=== PATIENT | female | born 1955 | race Caucasian/White ===

== ENCOUNTER 2022-06-14 19:54 | Inpatient (IN) | payer OTHER ==
[~2022-06-14] VITALS: Ht 162.6 cm; Wt 59.0 kg
[2022-06-14 20:14] VITALS: BP 151/88
--- NOTE | 2022-06-14 20:15 | NUR ---
PT OFFLOADED TO [facility]
[2022-06-15] MEDS ORDERED: NACL 0.9% 1,000 ML IV ONE (00:30)
[2022-06-15] MEDS ORDERED: ONDANSETRON 4 MG/2 ML VIAL IVP ONE (00:30)
--- NOTE | 2022-06-15 00:33 | NUR ---
PT TAKEN TO BED 2
--- NOTE | 2022-06-15 00:45 | NUR ---
Pt BIBA from home c/o N/V/tremors that started yesterday. Pt denies any other s/s. H/O ETOH abuse Hx- HTN, depression Allergies to sulfa
[2022-06-15 00:48] LABS: APPEARANCE,URINE CLOUDY (CLEAR); BILIRUBIN,URINE 2+ (NEGATIVE); BLOOD, URINE 2+ (NEGATIVE); COLOR,URINE BROWN (YELLOW); LEUKOCYTE ESTERASE ,URINE TRACE (NEGATIVE); NITRITE, URINE POSITIVE (NEGATIVE); PH,URINE 5.5 (5.0-9.0); UGLUCOSE NEGATIVE (NEGATIVE)
[2022-06-15] MEDS ORDERED: NEBI5TAB4 PO (00:48)
[2022-06-15] MEDS ORDERED: BENA40TA PO (00:48)
[2022-06-15 00:50] LABS: BASOPHILS % (AUTO) 0.3 % (0.0-2.0); LYMPHOCYTES # (AUTO) 2.4 K/uL (2.5-16.5); LYMPHOCYTES % (AUTO) 25.1 % (20.5-51.1); MEAN CORPUSCULAR HEMOGLOBIN 35 pg (27-31); MEAN CORPUSCULAR HGB CONC 34 g/dL (33-37); MEAN CORPUSCULAR VOLUME 101.9 fL (80-94); MONOCYTES # (AUTO) 1.1 K/uL (0.8-1.0); MONOCYTES % (AUTO) 10.9 % (1.7-9.3); NEUTROPHILS # (AUTO) 6.2 K/uL (1.8-7.7); NEUTROPHILS % (AUTO) 63.7 % (42.2-75.2); PLATELET COUNT (AUTO) 330 K/uL (140-450); RED BLOOD CELL COUNT(AUTO) 4.03 MIL/uL (4.20-5.40); RED CELL DISTRIBUTION WIDTH 14.7 % (11.6-13.7); WHITE BLOOD COUNT (AUTO) 9.7 K/uL (4.8-10.8)
[2022-06-15] MEDS ORDERED: TRAZ-343 PO (00:50)
[2022-06-15] MEDS ORDERED: VENL150C4 PO (00:51)
[2022-06-15] MEDS ORDERED: SODI100076 PO (00:52)
[2022-06-15] MEDS ORDERED: ONDA-188 SL (00:52)
[2022-06-15] MEDS ORDERED: LAM200 PO (00:53)
--- NOTE | 2022-06-15 00:57 | NUR ---
PT RETURN FROM RADIOLOGY
[2022-06-15 01:02] LABS: ALBUMIN 3.9 g/dL (3.4-5.0); CARBON DIOXIDE 29.6 mmol/L (21-32); POTASSIUM 3.6 mmol/L (3.5-5.1); TOTAL BILIRUBIN 1.3 mg/dL (0.0-1.0)
[2022-06-15] MEDS ORDERED: LORazepam 2 MG/ML VIAL IVP ONE (01:20)
[2022-06-15] MEDS ORDERED: cefTRIAXone 1,000 MG VIAL ONE (01:23)
--- NOTE | 2022-06-15 02:00 | NUR ---
resting in bed with eyes closed, respirations regular and unlabored
--- NOTE | 2022-06-15 06:29 | NUR ---
tucker swab obtained and sent to lab
[2022-06-15] MEDS ORDERED: DOCUSATE SODIUM 100 MG GELCAP PO PRN (07:55)
[2022-06-15] MEDS ORDERED: MAG SULF 2000 MG/WATER PREMIX 50 ML IV PRN (07:55)
[2022-06-15] MEDS ORDERED: LORazepam 2 MG/ML VIAL IVP PRN (07:55)
[2022-06-15] MEDS ORDERED: POTASSIUM CHLORIDE 10 MEQ TABER PO PRN (07:55)
[2022-06-15] MEDS ORDERED: MORPHINE SULFATE 2 MG/ML SYR IVP PRN (07:55)
[2022-06-15] MEDS ORDERED: ONDANSETRON 4 MG/2 ML VIAL IVP PRN (07:55)
[2022-06-15] MEDS ORDERED: ACETAMINOPHEN 325 MG TAB PO PRN (07:55)
[2022-06-15] MEDS ORDERED: lamoTRIgine 25 MG TAB PO SCH (09:00)
--- NOTE | 2022-06-15 09:51 | NUR ---
PLACED TEXT TO Toro ESPARZA FOR ORDER CLARIFICATION ON LAMICTAL. TWO ORDERS FOR SAME MED.
--- NOTE | 2022-06-15 10:05 | NUR ---
PER TORB ORDER DR LORENZA ORNELAS 50 MG LAMICTAL , GIVEN ONLY 100MG PO. PHARMACIST MARY MADE AWARE
--- NOTE | 2022-06-15 11:14 | NUR ---
ROOM ASSIGNMENT 105A TRACY BUCKLEY ON UNIT REQUESTS REPORT AT BS.
--- NOTE | 2022-06-15 11:53 | NUR ---
CALLED TRACY BUCKLEY ON UNIT. STATES "BED NOT CLEAN YET, [facility] HAS BEEN CALLED". UPDATE GIVEN TO CHARGE. UNABLE TO MOVE PT AT THIS TIME.
[2022-06-15 13:45] VITALS: BP 168/92
--- NOTE | 2022-06-15 13:50 | NUR ---
RECEIVED PT FROM ER. REPORT RECEIVED FROM DONNA BUCKLEY FOR CONTINUITY OF CARE. PLACED IN BED COMFORTABLY. INITIAL ASSESSMENT DONE. ALERT AND ORIENTED X 4. RESP. EVEN AND UNLABORED. SKIN INTACT. CONTINENT TO BOWEL AND BLADDER. IVF INTACT TO LAC 20G. NO C/O PAIN OR DISCOMFORT. CALL LIGHT KEPT WITHIN REACH. WILL CONTINUE TO MONITOR.
[2022-06-15 16:00] VITALS: BP 180/102
--- NOTE | 2022-06-15 16:00 | NUR ---
MRSA SWAB COLLECTED. SEND TO LAB.
[2022-06-15] MEDS: hydrALAZINE 20 MG/ML VIAL IVP PRN (18:39)
--- NOTE | 2022-06-15 18:39 | NUR ---
BP 180/102. PRN HYDRALAZINE IVP WAS GIVEN BY ALBERTINA BUCKLEY. TOLERATING WELL.
--- NOTE | 2022-06-15 19:30 | NUR ---
REPORT GIVEN TO REFINERY OPERATOR ASSISTANT RAMY FOR CONTINUITY OF CARE. REMAINS STABLE.
--- NOTE | 2022-06-15 19:31 | NUR ---
RECEIVED REPORT FROM DAY SHIFT RN FOR CONTINUITY OF CARE. PT IS AWAKE AND ALERT. PT NOT IN ANY DISTRESS. PT IS AMBULATORY WITH CANE. PT HAS LEFT AC 20 GAUGE SALINE LOCK. WILL CONTINUE TO MONITOR THE PT.
[2022-06-15 20:00] VITALS: BP 140/71
[2022-06-15] MEDS: ZOLPIDEM 10 MG TAB PO PRN (21:16)
[2022-06-16] VITALS: BP 145/93
[2022-06-16] MEDS ORDERED: cefTRIAXone 1,000 MG VIAL ONE (01:37)
--- NOTE | 2022-06-16 01:50 | NUR ---
SCHEDULE MEDICATION GIVEN. NO ADVERSE REACTION NOTED. WILL CONTINUE TO MONITOR.
[2022-06-16] MEDS: BENAZEPRIL 20 MG TAB PO SCH (05:16)
--- NOTE | 2022-06-16 07:15 | NUR ---
ENDORSED PT TO DAY SHIFT RN FOR CONTINUITY OF CARE. PT IS STABLE.
--- NOTE | 2022-06-16 07:16 | NUR ---
RECEIVED BEDSIDE REPORT FROM NIGHTSHIFT NURSE. PT IS ASLEEP IN BED, WOKE TO NAME AND TOUCH. PT AOX4, ON RM AIR, NO SIGNS OF DISTRESS, NO REPORTS OF PAIN. IV TO LEFT AC 20G CLEAN AND INTACT, SALINE LOCK. NO FURTHER NEEDS ARE TO BE MET AT THIS TIME, WILL CONTINUE WITH CARE. BED IN LOWEST POSITION, 2 SIDE RAILS UP, CALL LIGHT PLACED WITHIN REACH. REORIENTED PT TO CALL LIGHT.
[2022-06-16 07:18] LABS: BASOPHILS % (AUTO) 0.3 % (0.0-2.0); EOSINOPHILS % (AUTO) 0.6 % (0.0-4.0); HEMATOCRIT 37.3 % (36-48); HEMOGLOBIN 12.7 g/dL (12.0-16.0); LYMPHOCYTES # (AUTO) 2.1 K/uL (2.5-16.5); LYMPHOCYTES % (AUTO) 37.1 % (20.5-51.1); MEAN CORPUSCULAR HEMOGLOBIN 35 pg (27-31); MEAN CORPUSCULAR HGB CONC 34 g/dL (33-37); MEAN CORPUSCULAR VOLUME 102.6 fL (80-94); MONOCYTES # (AUTO) 0.7 K/uL (0.8-1.0); MONOCYTES % (AUTO) 12.9 % (1.7-9.3); NEUTROPHILS # (AUTO) 2.8 K/uL (1.8-7.7); NEUTROPHILS % (AUTO) 49.1 % (42.2-75.2); PLATELET COUNT (AUTO) 257 K/uL (140-450); RED BLOOD CELL COUNT(AUTO) 3.64 MIL/uL (4.20-5.40); RED CELL DISTRIBUTION WIDTH 14.7 % (11.6-13.7); WHITE BLOOD COUNT (AUTO) 5.8 K/uL (4.8-10.8)
[2022-06-16 07:54] LABS: ANION GAP 11.1 (8-16); CREATININE 0.7 mg/dL (0.6-1.3); POTASSIUM 3.1 mmol/L (3.5-5.1)
[2022-06-16 08:00] VITALS: BP 146/85
--- NOTE | 2022-06-16 08:45 | NUR ---
PT POTASSIUM LOW (3.1), COVERED WITH KDUR.
[2022-06-16 16:00] VITALS: BP 153/97
--- NOTE | 2022-06-16 19:10 | NUR ---
ENDORSED PT TO NIGHTSHIFT NURSE. PT IS AWAKE, STABLE. NO FURTHER NEEDS ARE TO BE MET AT THIS TIME. BED IN LOWEST POSITION, 2 SIDE RAILS UP, CALL LIGHT PLACED WITHIN REACH.
--- NOTE | 2022-06-16 19:15 | NUR ---
RECEIVED REPORT FROM DAY SHIFT RN FOR CONTINUITY OF CARE. PT IS AAOX4 ON RA. NOT IN ANY DISTRESS. PT HAS LEFT AC 20 GAUGE. SALINE LOCK. POC DISCUSSED. WILL CONTINUE TO MONITOR THE PT.
[2022-06-16] MEDS: ZOLPIDEM 10 MG TAB PO PRN (20:18)
[2022-06-17] VITALS: BP 137/96
--- NOTE | 2022-06-17 00:40 | NUR ---
SCHEDULE MEDICATION GIVEN. NO ADVERSE REACTION NOTED. WILL CONTINUE TO MONITOR THE PT.
--- NOTE | 2022-06-17 00:40 | NUR ---
SCHEDULE MEDICATION GIVEN. NO ADVERSE REACTION NOTED. WILL CONTINUE TO MONITOR THE PT.
--- NOTE | 2022-06-17 05:20 | NUR ---
CHECKED ON PT. PT IS SLEEPING IN BED. NOT IN ANY ACUTE DISTRESS. VISIBLE CHEST RISE AND FALL. SAFETY MEASURES TAKEN. WILL CONTINUE TO MONITOR THE PT.
[2022-06-17] MEDS: BENAZEPRIL 20 MG TAB PO SCH (05:33)
--- NOTE | 2022-06-17 07:02 | NUR ---
ENDORSED PT TO DAY SHIFT RN FOR CONTINUITY OF CARE. PT IS STABLE.
--- NOTE | 2022-06-17 07:03 | NUR ---
RECEIVED REPORT FROM EQUIP MAINT ENG NURSE. PT IS AWAKE IN BED, NO SIGNS OF DISTRESS, NO REPORTS OF PAIN. WILL CONTINUE WITH PT CARE.
[2022-06-17 07:39] LABS: BASOPHILS % (AUTO) 0.4 % (0.0-2.0); EOSINOPHILS # (AUTO) 0.3 K/uL (0-0.4); EOSINOPHILS % (AUTO) 4.4 % (0.0-4.0); HEMATOCRIT 37.8 % (36-48); HEMOGLOBIN 12.8 g/dL (12.0-16.0); LYMPHOCYTES # (AUTO) 2.2 K/uL (2.5-16.5); LYMPHOCYTES % (AUTO) 31.8 % (20.5-51.1); MEAN CORPUSCULAR HEMOGLOBIN 35 pg (27-31); MEAN CORPUSCULAR HGB CONC 34 g/dL (33-37); MEAN CORPUSCULAR VOLUME 103.2 fL (80-94); MONOCYTES # (AUTO) 0.7 K/uL (0.8-1.0); MONOCYTES % (AUTO) 10.8 % (1.7-9.3); NEUTROPHILS # (AUTO) 3.6 K/uL (1.8-7.7); NEUTROPHILS % (AUTO) 52.6 % (42.2-75.2); PLATELET COUNT (AUTO) 261 K/uL (140-450); RED BLOOD CELL COUNT(AUTO) 3.66 MIL/uL (4.20-5.40); RED CELL DISTRIBUTION WIDTH 14.5 % (11.6-13.7); WHITE BLOOD COUNT (AUTO) 6.8 K/uL (4.8-10.8)
[2022-06-17 07:46] LABS: ANION GAP 10.6 (8-16); CARBON DIOXIDE 28.9 mmol/L (21-32); CREATININE 0.7 mg/dL (0.6-1.3); POTASSIUM 3.5 mmol/L (3.5-5.1)
[2022-06-17 08:00] VITALS: BP 147/81
[2022-06-17] MEDS: hydrALAZINE 20 MG/ML VIAL IVP PRN ×2 (08:02→18:55)
--- NOTE | 2022-06-17 09:01 | NUR ---
PATIENT HAS BEEN SCREENED AND CATEGORIZED MODERATE NUTRITION RISK. PATIENT WILL BE SEEN WITHIN 3-5 DAYS OF ADMISSION. 06/15/22-06/20/[address]
--- NOTE | 2022-06-17 11:38 | NUR ---
DR BARRIGA WITH PT AT BEDSIDE. VERBAL ORDER: MIRALAX 17MG & ABDOMINAL US
[2022-06-17] MEDS: POLYETHYLENE GLYCOL 17 GM/PKT PO SCH (14:00)
[2022-06-17 16:00] VITALS: BP 153/72
--- NOTE | 2022-06-17 19:00 | NUR ---
ENDORSED PT TO NIGHTSHIFT NURSE FOR CONTINUITY OF CARE. PT STABLE, NO SIGNS OF DISTRESS, NO REPORTS OF PAIN. BED IN LOWEST POSITION, SIDE RAILS UP, CALL LIGHT WITHIN REACH.
[2022-06-17] MEDS: ZOLPIDEM 10 MG TAB PO PRN (22:25)
--- NOTE | 2022-06-17 22:25 | NUR ---
PT COMPLAINTS OF UNABLE TO SLEEP, SLEEPING MEDICATION AMBIEN ADMINISTERED ORDERED.
[2022-06-18] MEDS: BENAZEPRIL 20 MG TAB PO SCH (05:44)
--- NOTE | 2022-06-18 06:20 | NUR ---
Received pt from Nurse Billy for continuity of care. Pt is stable, asleep in bed. no s/sx of distress at this moment. on room air.breathing even and unlabored. All precautions in place. Call light within reach. Will continue to monitor.
[2022-06-18 07:10] LABS: BASOPHILS % (AUTO) 0.2 % (0.0-2.0); EOSINOPHILS # (AUTO) 0.4 K/uL (0-0.4); EOSINOPHILS % (AUTO) 4.7 % (0.0-4.0); HEMATOCRIT 37.1 % (36-48); HEMOGLOBIN 12.8 g/dL (12.0-16.0); LYMPHOCYTES # (AUTO) 2.2 K/uL (2.5-16.5); LYMPHOCYTES % (AUTO) 28.6 % (20.5-51.1); MEAN CORPUSCULAR HEMOGLOBIN 36 pg (27-31); MEAN CORPUSCULAR HGB CONC 35 g/dL (33-37); MEAN CORPUSCULAR VOLUME 103.5 fL (80-94); MONOCYTES # (AUTO) 0.9 K/uL (0.8-1.0); MONOCYTES % (AUTO) 11.5 % (1.7-9.3); NEUTROPHILS # (AUTO) 4.3 K/uL (1.8-7.7); PLATELET COUNT (AUTO) 269 K/uL (140-450); RED BLOOD CELL COUNT(AUTO) 3.58 MIL/uL (4.20-5.40); RED CELL DISTRIBUTION WIDTH 14.8 % (11.6-13.7); WHITE BLOOD COUNT (AUTO) 7.8 K/uL (4.8-10.8)
--- NOTE | 2022-06-18 07:19 | NUR ---
ENDORSED TO DAY SHIFT NURSE FOR CONTINUITY OF CARE. PT IS STABLE.
--- NOTE | 2022-06-18 07:20 | NUR ---
RECEIVED BEDSIDE REPORT FROM NIGHTSHIFT NURSE. PT IS AWAKE IN BED, VITAL SIGNS STABLE, NO SIGNS OF DISTRESS, NO REPORTS OF PAIN. REORIENTED PT TO CALL LIGHT. NO FURTHER NEEDS ARE TO BE MET AT THIS TIME, WILL CONTINUE WITH CARE.
[2022-06-18 07:54] LABS: ANION GAP 12.7 (8-16); CARBON DIOXIDE 27.6 mmol/L (21-32); CREATININE 0.7 mg/dL (0.6-1.3); POTASSIUM 3.3 mmol/L (3.5-5.1)
[2022-06-18 08:00] VITALS: BP 122/85
[2022-06-18] MEDS: POLYETHYLENE GLYCOL 17 GM/PKT PO SCH (10:08)
[2022-06-18 13:11] VITALS: BP 122/85
--- NOTE | 2022-06-18 18:00 | NUR ---
DISCHARGE ORDERED BY . PT INFORMED OF DISCHARGE. DC INSTRUCTIONS PROVIDED, PT VERBALIZE UNDERSTANDING. PAPERWORK FILLED OUT. IV REMOVED. PT VITALS STABLE. TRANSPORTATION CALLED. PT LEFT [facility] UNIT VIA WHEELCHAIR, AMBULATED AND WALKED INDEPENDENTLY TO TRANSPORT VEHICLE. PT LEFT @1730.
== END 2022-06-18 17:15 | disposition home or self-care (01) | DRG 644 ==
LOC: MED 19:54 → MTU 06-15 06:40
PROVIDERS: ADMIT Family Medicine; ATTEND Family Medicine
DX: E22.2 Syndrome of inappropriate secretion of antidiuretic hormone (principal); N39.0 Urinary tract infection, site not specified; R65.10 Systemic inflammatory response syndrome (SIRS) of non-infectious origin without acute organ dysfunction; F32.A Depression, unspecified; E87.8 Other disorders of electrolyte and fluid balance, not elsewhere classified; R74.01 Elevation of levels of liver transaminase levels; Z20.822 Contact with and (suspected) exposure to COVID-19; D25.9 Leiomyoma of uterus, unspecified; I12.9 Hypertensive chronic kidney disease with stage 1 through stage 4 chronic kidney disease, or unspecified chronic kidney disease; N18.9 Chronic kidney disease, unspecified; Z88.2 Allergy status to sulfonamides; Z79.899 Other long term (current) drug therapy
CPT/HCPCS: 36415; 76700; 80048; 80053; 81001; 83605; 83690; 83735; 85025; 87040; 87081; 87086; 96365; 96375; 97116; 97163-GP; 99285; J0360; J0696; J2060; J2405; J7060; Q0092